=== PATIENT | male | born 1965 | race Two or more races ===

== ENCOUNTER 2018-11-11 09:30 | Emergency (ER) | END 2018-11-11 11:45 | disposition home or self-care (01) ==

== ENCOUNTER 2019-05-27 09:57 | Inpatient (IN) | payer OTHER ==
[~2019-05-27] VITALS: Ht 175.3 cm; Wt 80.0 kg
[~2019-05-27 09:57] MED LIST: DOCU-144 PO; FAMO-96 PO
[2019-05-27] MEDS ORDERED: ONDANSETRON 4 MG INJ IV STA ×2 (10:08→12:16)
[2019-05-27] MEDS ORDERED: SOD CHLORIDE 0.9% 1,000 ML IV STA ×2 (10:08→12:16)
[2019-05-27] MEDS ORDERED: HYDROmorphONE 1 MG/ML SYG IV STA ×2 (10:08→12:16)
--- NOTE | 2019-05-27 11:21 | ERD ---
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 NO HEMATURIA HPI This is a 53-year-old male with no past medical history that presents to the emergency department complaining of a sudden onset of left flank pain that occurred 1 hour prior to arrival. The patient states the pain is 10 out of 10 in intensity. The patient has not experienced any hematuria. The patient has never had any similar pain in the past. He has no past surgical history. He did not take any analgesic medication prior to arrival. The pain began to radiate to the left lower quadrant. There is no alleviating or exacerbating factors. No fevers or shaking or chills. ROS All systems reviewed and are negative except as per history of present illness. Medications Home Meds Discontinued Scripts Famotidine* (Pepcid*) 20 Mg Tablet, 20 MG PO BID for 4 Days, TAB Prov:JOSÉ MIGUEL AU 11/11/18 Docusate Sodium* (Colace*) 100 Mg Capsule, 100 MG PO TID, #30 CAP Prov:ROEJOSÉ MIGUEL 11/11/18 Allergies Allergies: Coded Allergies: No Known Allergy (Verified , 05/27/19) PMhx/Soc History of Surgery: Yes (hernia repair~10 yrs ago) Anesthesia Reaction: No Hx Neurological Disorder: No Hx Respiratory Disorders: No Hx Cardiac Disorders: No Hx Psychiatric Problems: No Hx Miscellaneous Medical Probl: No Hx Alcohol Use: No Hx Substance Use: Yes Hx Tobacco Use: Yes Smoking Status: Never smoker Physical Exam Vitals Vital Signs Date Temp Pulse Resp B/P (MAP) Pulse Ox O2 O2 Flow FiO2 Time Delivery Rate 05/27/19 98.5 79 26 175/89 98 09:59 (117) Physical Exam Constitutional:Well-developed. Well-nourished. Patient tearful and appeared to be in a significant amount discomfort secondary to pain HEENT:Normocephalic. Atraumatic.Pupils were equal round reactive to light. Moist mucous membranes.No tonsillar exudates. Neck: No nuchal rigidity. No lymphadenopathy. No posterior cervical spine tenderness or step-offs. Respiratory: Not using accessory muscles of respiration.Lungs were clear to auscultation bilaterally. No rhonchi. No rales. No wheezing. Cardiovascular: Regular rate regular rhythm.No murmurs. No rubs were appreciated.S1, S2 normal. Distal pulses are palpable 2+ bilaterally. GI: Abdomen was soft. Severe pain in the left lower quadrant. Non Distended. No pulsatile abdominal masses or bruits. No rebound. No guarding. Bowel sounds were present and normal. Muscle skeletal: Full range of motion of both the upper and lower extremities bilaterally.Normal muscle tone.No assymetrical calf tenderness or swelling. Skin: No petechia, no purpura. No lesions on the palms or the soles of the feet. No maculopapular rash. NEURO: Patient was alert, awake, orientated x3.No facial droop. Gait observed and normal with no ataxia.Speech had regular rate and rhythm. No focal neurological deficits. Result Diagram: 05/27/19 1013 05/27/19 1013 Results 24 hrs Laboratory Tests Test 05/27/19 10:13 White Blood Count 4.3 10^3/ul Red Blood Count 4.42 10^6/ul Hemoglobin 15.0 g/dl Hematocrit 42.7 % Mean Corpuscular Volume 96.6 fl Mean Corpuscular Hemoglobin 33.9 pg Mean Corpuscular Hemoglobin Concent 35.1 g/dl Red Cell Distribution Width 13.8 % Platelet Count 139 10^3/UL Mean Platelet Volume 10.3 fl Immature Granulocytes % 0.200 % Neutrophils % 41.8 % Lymphocytes % 42.1 % Monocytes % 12.6 % Eosinophils % 2.8 % Basophils % 0.5 % Nucleated Red Blood Cells % 0.0 /100WBC Immature Granulocytes # 0.010 10^3/ul Neutrophils # 1.8 10^3/ul Lymphocytes # 1.8 10^3/ul Monocytes # 0.5 10^3/ul Eosinophils # 0.1 10^3/ul Basophils # 0.0 10^3/ul Nucleated Red Blood Cells # 0.0 10^3/ul Prothrombin Time 13.4 Sec Prothrombin Time Ratio 1.0 INR International Normalized Ratio 1.01 Activated Partial Thromboplast Time 24.1 Sec Urine Color YELLOW Urine Clarity CLEAR Urine pH 6.0 Urine Specific [place] 1.006 Urine Ketones NEGATIVE mg/dL Urine Nitrite NEGATIVE mg/dL Urine Bilirubin NEGATIVE mg/dL Urine Urobilinogen NEGATIVE mg/dL Urine Leukocyte Esterase NEGATIVE [place]/ul Urine Microscopic RBC > 182 /HPF Urine Microscopic WBC 12 /HPF Urine Bacteria FEW /HPF Urine Mucus FEW /HPF Urine Hemoglobin 3+ mg/dL Urine Glucose NEGATIVE mg/dL Urine Total Protein NEGATIVE mg/dl Sodium Level 143 mmol/L Potassium Level 4.1 mmol/L Chloride Level 109 mmol/L Carbon Dioxide Level 24 mmol/L Anion Gap 10 Blood Urea Nitrogen 6 mg/dl Creatinine 0.87 mg/dl Est Glomerular Filtrat Rate mL/min > 60 mL/min Glucose Level 88 mg/dl Calcium Level 9.2 mg/dl Total Bilirubin 1.6 mg/dl Direct Bilirubin 0.00 mg/dl Indirect Bilirubin 1.6 mg/dl Aspartate Amino Transf (AST/SGOT) 69 IU/L Alanine Aminotransferase (ALT/SGPT) 70 IU/L Alkaline Phosphatase 92 IU/L Troponin I < 0.012 ng/ml Total Protein 8.9 g/dl Albumin 4.4 g/dl Globulin 4.50 g/dl Albumin/Globulin Ratio 0.97 Amylase Level 102 U/L Lipase 140 U/L Current Medications Medications Dose Sig/Rodrigo Start Time Status Last (Trade) Ordered Route PRN Stop Time Admin Dose Reason Admin Sodium 1,000 ml @ Q1H STAT 05/27/19 DC 05/27/19 Chloride 1,000 mls/hr IV 10:08 10:17 05/27/19 11:07 1 mg ONCE STAT 05/27/19 DC 05/27/19 Hydromorphone IV 10:08 10:16 HCl 05/27/19 10:10 (Dilaudid) Ondansetron 4 mg ONCE STAT 05/27/19 DC 05/27/19 HCl (Zofran IV 10:08 10:15 Inj) 05/27/19 10:10 Ketorolac 30 mg ONCE STAT 05/27/19 DC 05/27/19 Tromethamine IV 12:13 12:33 (Toradol) 05/27/19 12:15 Sodium 1,000 ml @ Q1H STAT 05/27/19 DC 05/27/19 Chloride 1,000 mls/hr IV 12:16 12:32 05/27/19 13:15 1 mg ONCE STAT 05/27/19 DC 05/27/19 Hydromorphone IV 12:16 12:33 HCl 05/27/19 12:17 (Dilaudid) Ondansetron 4 mg ONCE STAT 05/27/19 DC HCl (Zofran IV 12:16 Inj) 05/27/19 12:17 Procedures/MDM This is a very pleasant 53-year-old male that presented to the emergency department the sudden onset of severe flank pain. The patient immediately was placed on plugger continuous pulse oximetry and IV access was established by nursing staff. The patient was given intravenous Dilaudid and fluids. A CT scan of the abdomen confirmed that the patient did have the followin. Mild left-sided hydroureteronephrosis with an obstructing proximal left ureteral 6 x 7 mm calculus. 2. Nonobstructing left lower pole renal [place] 3 mm calculus. 3. Colonic diverticulosis. 4. No CT evidence for appendicitis. 5. Status post cholecystectomy. 6. Mildly enlarged prostate. 7. Small right inguinal hernia containing fat. 8. Probable prior left-sided inguinal herniorrhaphy. The patient required multiple doses of analgesic medication which also included Toradol and Flomax. Urine culture was obtained. The patient was given IV ciprofloxacin as he also had pyuria on his urinalysis with hematuria. Patient's pain did not improve as he required multiple doses of analgesic medication and therefore he will be admitted for pain control to the hospitalist Dr. Anders. I did feel the patient was stable to go to the medical surgical floor. I obtained a 12-lead EKG tracing to rule for atypical myocardial fraction. 12 Lead EKG tracing ordered and reviewed by myself showed: Normal sinus rhythm of 67 bpm and no arrhythmia. MA interval normal. QRS duration normal. No ST segment elevation No ST segment depression. No changes consistent with acute ischemia. Departure Diagnosis: Primary Impression: Obstructive uropathy Condition: Serious RAUL TEMPLETON MD May 27, 2019 11:21
[2019-05-27] MEDS ORDERED: KETOROLAC 30 MG INJ IV STA (12:13)
[2019-05-27] MEDS ORDERED: ONDANSETRON 4 MG INJ IV PRN ×2 (12:30→14:30)
[2019-05-27] MEDS ORDERED: TAMSULOSIN (SR) 0.4 MG CAP PO ONE (12:30)
[2019-05-27] MEDS ORDERED: CIPROFLOXACIN 400MG/D5W 200 ML IVPB ONE (12:30)
[2019-05-27] MEDS ORDERED: ACETAMINOPHEN 325 MG TAB PO PRN ×2 (12:30→14:30)
[2019-05-27 13:25] VITALS: BP 121/72; PULSE 61; RESP 18
[2019-05-27 14:15] VITALS: Ht 175.3 cm; Wt 80.0 kg
--- NOTE | 2019-05-27 14:26 | HP ---
Date/Time of Note Date/Time of Note DATE: 05/27/19 TIME: 14:10 Assessment/Plan VTE Prophylaxis SCD applied (from Nsg): Yes Pharmacological prophylaxis: NA/contraindicated Pharm contraindication: low risk/ambulating Lines/Catheters IV Catheter Type (from Nrsg): Saline Lock Assessment/Plan Assessment/Plan 53 yo man presents with acute obstructive nephrolithiasis #L sided obstructive nephrolithiasis - Oral fluids, pain control - Tamsulosin - Consulted Dr. Kelly - Likely discharge in AM. #Tobacco use - Counselled on cessation #Alcohol use - Counselled on national guideline recommended intake. DVT: SCDs GI: None Result Diagram: 05/27/19 1013 05/27/19 1013 HPI/ROS Admit Date/Time Admit Date/Time May 27, 2019 at 12:22 Hx of Present Illness Mr. Walters is a 53 yo man with no major PMH who presents with acute onset L flank pain. Symptoms started this morning around 9 am with stabbing left lower quadrant pain radiating to the L flank. It was waxing and waning in quality. Not associated with dysuria or hematuria. He has never had similar pain before. He came to the emergency room. In the ED he was afebrile, tachypneic to 26, BP 175/89, in very considerable pain. CBC and BMP were unremarkable. CT showed left proximal ureter 6x7mm stone with hydroureteronephrosis. ROS He denies fever, chills, weight loss, anorexia, headache, vision changes, dizziness, sore throat, dysphagia, nausea, vomiting, dyspnea, cough, chest pain/pressure/palpitations, diarrhea, constipation, dysuria. Of note, after getting the CT in the ED the patient had an episode of brown urine then it was clear afterwards. PMH/Family/Social Past Medical History Denies Coded Allergies: No Known Allergy (Verified , 05/27/19) Past Surgical History L inguinal hernia Cholecystectomy Social History Alcohol Use: heavy (drinks 4-5 beers per day) Smoking Status: Current every day smoker (smokes 4-5 cigarettes per day) Drug Use: none Exam/Review of Systems Vital Signs Vitals Vital Signs Date Temp Pulse Resp B/P (MAP) Pulse Ox O2 O2 Flow FiO2 Time Delivery Rate 05/27/19 98.1 61 18 121/72 Room Air 13:25 (88) 05/27/19 98 13:01 Exam Exam Gen: Well appearing man comfortably in bed, no distress Eyes: PERRL, no icterus HEENT: Moist mucous membranes, clear oropharynx Card: Regular rate and rhythm, no murmurs Pulm: Clear to auscultation bilaterally Abd: Epigastric tenderness to deep palpation. Minimal LLQ tenderness. Soft, nondistended. No CVA tenderness bilatreally. Ext: No cyanosis/clubbing. Trace bilateral edema. Skin: warm, dry, well perfused. GRACIA COSTA MD May 27, 2019 14:22
[2019-05-27] MEDS ORDERED: NACL 0.9% 3 ML SYG IV SCH (14:30)
[2019-05-27] MEDS: HYDROCODONE/APAP (5/325) TAB PO PRN (15:56)
--- NOTE | 2019-05-27 16:22 | CONS ---
Assessment/Plan Assessment/Plan Hospital Course (Demo Recall) 53-year-old male came into the emergency room with severe left flank pain. He underwent a CT scan of the abdomen and pelvis and that showed a 6 x 7 mm left upper ureteral stone. Patient was admitted and a urological consultation was requested. Patient states have left flank pain about 3 months earlier and I came in to the emergency room here. At that time the pain was not as bad and he was told he has a urinary tract infection. He denies any prior history of kidney stone. Impression is 6 x 7 mm stone in the left upper ureter. Plan: Pain medications, antibiotic, strain the urine, tamsulosin, KUB today and tomorrow to see if the stone is visible and follow its progression. Consultation Date/Type/Reason Admit Date/Time May 27, 2019 at 12:22 Date of Consultation: May 27, 2019 Type of Consult Urology Reason for Consultation Left upper ureteral stone Requesting Provider: GRACIA COSTA MD Date/Time of Note DATE: 05/27/19 TIME: 16:15 Hx of Present Illness 53-year-old male came into the emergency room with severe left flank pain. He underwent a CT scan of the abdomen and pelvis and that showed a 6 x 7 mm left upper ureteral stone. Patient was admitted and a urological consultation was requested. Patient states have left flank pain about 3 months earlier and I came in to the emergency room here. At that time the pain was not as bad and he was told he has a urinary tract infection. He denies any prior history of kidney stone. Constitutional: no complaints Eyes: no complaints ENT: no complaints Respiratory: no complaints; No wheezing Cardiovascular: no complaints; No chest pain Gastrointestinal: no complaints Genitourinary: flank pain (Left side) Musculoskeletal: no complaints Skin: no complaints Neurologic: no complaints Endocrine: no complaints Psychological: no complaints Immunologic: no complaints Past Medical History Home Meds Discontinued Scripts Famotidine* (Pepcid*) 20 Mg Tablet, 20 MG PO BID for 4 Days, TAB Prov:ROE,JOSÉ MIGUEL 11/11/18 Docusate Sodium* (Colace*) 100 Mg Capsule, 100 MG PO TID, #30 CAP Prov:ROE,JOSÉ MIGUEL 11/11/18 Medications Current Medications IV Flush (NS 3 ml) 3 ml PER PROTOCOL IV ; Start 05/27/19 at 14:30 Ondansetron HCl (Zofran Inj) 4 mg Q6H PRN IV NAUSEA/VOMITING; Start 05/27/19 at 14:30 Acetaminophen (Tylenol Tab) 650 mg Q6H PRN PO .PAIN 1-3 OR TEMP; Start 05/27/19 at 14:30 Acetaminophen/ Hydrocodone Bitart ([place] (5/325)) 1 tab Q6H PRN PO .MOD PAIN 4- 6 Last administered on 05/27/19at 15:56; Admin Dose 1 TAB; Start 05/27/19 at 14:30 Morphine Sulfate (morphine) 2 mg Q4H PRN IV BREAKTHROUGH PAIN; Start 05/27/19 at 14:30 Tamsulosin HCl (Flomax) 0.4 mg HS PO ; Start 05/27/19 at 21:00 Allergies: Coded Allergies: No Known Allergy (Verified , 05/27/19) Past Surgical History Past Surgical Hx: cholecystectomy, other (Left Inguinal hernia repair) Social History Alcohol Use: heavy (drinks 4-5 beers per day) Smoking Status: Current every day smoker (smokes 4-5 cigarettes per day) Drug Use: none Exam/Review of Systems Exam Vitals Vital Signs Date Temp Pulse Resp B/P (MAP) Pulse Ox O2 O2 Flow FiO2 Time Delivery Rate 05/27/19 98.1 61 18 121/72 Room Air 13:25 (88) 05/27/19 98 13:01 Constitutional: alert, oriented Psych: no complaints Head: normocephalic Eyes: nl conjunctiva ENMT: nl external ears & nose Neck: supple Respiratory: normal air movement; No wheezing Cardiovascular: No jugular venous distention (JVD) Gastrointestinal: soft, surgical scars Genitourinary - Male: nl penis, nl scrotum, CVA tenderness (left side), other (Recatal exam : soft prostate) Musculoskeletal: nl extremities to inspection Extremities: No calf tenderness Neurological: nl mental status Skin: nl turgor Results Result Diagram: 05/27/19 1013 05/27/19 1013 Results 24hrs Laboratory Tests Test 05/27/19 10:13 White Blood Count 4.3 #L Red Blood Count 4.42 L Hemoglobin 15.0 Hematocrit 42.7 Mean Corpuscular Volume 96.6 Mean Corpuscular Hemoglobin 33.9 H Mean Corpuscular Hemoglobin Concent 35.1 Red Cell Distribution Width 13.8 Platelet Count 139 L Mean Platelet Volume 10.3 Immature Granulocytes % 0.200 Neutrophils % 41.8 Lymphocytes % 42.1 Monocytes % 12.6 H Eosinophils % 2.8 Basophils % 0.5 Nucleated Red Blood Cells % 0.0 Immature Granulocytes # 0.010 Neutrophils # 1.8 Lymphocytes # 1.8 Monocytes # 0.5 Eosinophils # 0.1 Basophils # 0.0 Nucleated Red Blood Cells # 0.0 Prothrombin Time 13.4 Prothrombin Time Ratio 1.0 INR International Normalized Ratio 1.01 Activated Partial Thromboplast Time 24.1 Urine Color YELLOW Urine Clarity CLEAR Urine pH 6.0 Urine Specific [place] 1.006 Urine Ketones NEGATIVE Urine Nitrite NEGATIVE Urine Bilirubin NEGATIVE Urine Urobilinogen NEGATIVE Urine Leukocyte Esterase NEGATIVE Urine Microscopic RBC > 182 H Urine Microscopic WBC 12 H Urine Bacteria FEW A Urine Mucus FEW A Urine Hemoglobin 3+ H Urine Glucose NEGATIVE Urine Total Protein NEGATIVE Sodium Level 143 Potassium Level 4.1 Chloride Level 109 Carbon Dioxide Level 24 Anion Gap 10 Blood Urea Nitrogen 6 L Creatinine 0.87 Est Glomerular Filtrat Rate mL/min > 60 Glucose Level 88 Calcium Level 9.2 Total Bilirubin 1.6 H Direct Bilirubin 0.00 Indirect Bilirubin 1.6 H Aspartate Amino Transf (AST/SGOT) 69 H Alanine Aminotransferase (ALT/SGPT) 70 H Alkaline Phosphatase 92 Troponin I < 0.012 Total Protein 8.9 H Albumin 4.4 Globulin 4.50 H Albumin/Globulin Ratio 0.97 Amylase Level [address] scan of the abdomen and pelvis: 1. Mild left-sided hydroureteronephrosis with an obstructing proximal left ureteral 6 x 7 mm calculus. 2. Nonobstructing left lower pole renal [place] 3 mm calculus. 3. Colonic diverticulosis. 4. No CT evidence for appendicitis. 5. Status post cholecystectomy. 6. Mildly enlarged prostate. 7. Small right inguinal hernia containing fat. 8. Probable prior left-sided inguinal herniorrhaphy. Medications Medication Current Medications IV Flush (NS 3 ml) 3 ml PER PROTOCOL IV ; Start 05/27/19 at 14:30 Ondansetron HCl (Zofran Inj) 4 mg Q6H PRN IV NAUSEA/VOMITING; Start 05/27/19 at 14:30 Acetaminophen (Tylenol Tab) 650 mg Q6H PRN PO .PAIN 1-3 OR TEMP; Start 05/27/19 at 14:30 Acetaminophen/ Hydrocodone Bitart ([place] (5/325)) 1 tab Q6H PRN PO .MOD PAIN 4- 6 Last administered on 05/27/19at 15:56; Admin Dose 1 TAB; Start 05/27/19 at 14:30 Morphine Sulfate (morphine) 2 mg Q4H PRN IV BREAKTHROUGH PAIN; Start 05/27/19 at 14:30 Tamsulosin HCl (Flomax) 0.4 mg HS PO ; Start 05/27/19 at 21:00 ROSA BEARD MD May 27, 2019 16:22
[2019-05-27] MEDS: morphine 2 MG INJ IV PRN ×2 (19:14→23:40)
[2019-05-27 19:15] VITALS: BP 126/62; PULSE 60; RESP 16
[2019-05-27] MEDS: TAMSULOSIN (SR) 0.4 MG CAP PO SCH (20:54)
[2019-05-28 02:07] VITALS: BP 100/55; PULSE 51; RESP 17
[2019-05-28] MEDS: morphine 2 MG INJ IV PRN ×2 (06:08→15:07)
[2019-05-28 07:46] VITALS: BP 98/55; PULSE 51; RESP 18
--- NOTE | 2019-05-28 09:59 | PN ---
Date/Time of Note Date/Time of Note DATE: 05/28/19 TIME: 09:56 Assessment/Plan VTE Prophylaxis Risk score (from Nsg)>0 risk: 2 SCD applied (from Nsg): Yes Pharmacological prophylaxis: NA/contraindicated Pharm contraindication: low risk/ambulating Lines/Catheters IV Catheter Type (from Nrsg): Saline Lock Urinary Cath still in place: No Assessment/Plan Assessment/Plan 53 yo man presents with acute obstructive nephrolithiasis #L sided obstructive nephrolithiasis - Oral fluids, pain control - Tamsulosin - Continue straining urine. - Consulted Dr. Kelly - I believe the current plan is for ureteral stent on Wednesday with outpatient followup at [facility]. #Tobacco use - Counselled on cessation #Alcohol use - Counselled on national guideline recommended intake. DVT: SCDs GI: None Result Diagram: 05/28/194 05/28/19432 Subjective 24 Hr Interval Summary Free Text/Dictation Today the patient is gesturing to his right abdomen and reporting more pain on that side. Still requiring norco and morphine. Exam/Review of Systems Exam Vitals Vital Signs Date Temp Pulse Resp B/P (MAP) Pulse Ox O2 O2 Flow FiO2 Time Delivery Rate 05/28/19 98.4 51 18 98/55 (69) 96 07:46 05/27/19 Room Air 13:25 Intake and Output 05/27/19 05/27/19 05/28/19 1515:00 23:00 07:00 IntakeIntake Total 1400 ml 240 ml BalanceBalance 1400 ml 240 ml Exam Gen: Well appearing man comfortably in bed, no distress Eyes: PERRL, no icterus HEENT: Moist mucous membranes, clear oropharynx Card: Regular rate and rhythm, no murmurs Pulm: Clear to auscultation bilaterally Abd: Epigastric tenderness to deep palpation. Soft, nondistended. No CVA tenderness bilaterally. Ext: No cyanosis/clubbing. Trace bilateral edema. Skin: warm, dry, well perfused. Results Results 24hrs Laboratory Tests Test 05/27/19 10:13 05/28/19 04:33 05/28/19 04:34 White Blood Count 4.3 #L 5.1 Red Blood Count 4.42 L 3.92 L Hemoglobin 15.0 13.2 L Hematocrit 42.7 38.7 L Mean Corpuscular Volume 96.6 98.7 Mean Corpuscular Hemoglobin 33.9 H 33.7 H Mean Corpuscular Hemoglobin Concent 35.1 34.1 Red Cell Distribution Width 13.8 13.9 Platelet Count 139 L 112 L Mean Platelet Volume 10.3 10.8 H Immature Granulocytes % 0.200 0.400 Neutrophils % 41.8 53.0 Lymphocytes % 42.1 30.2 Monocytes % 12.6 H 12.8 H Eosinophils % 2.8 3.0 Basophils % 0.5 0.6 Nucleated Red Blood Cells % 0.0 0.0 Immature Granulocytes # 0.010 0.020 Neutrophils # 1.8 2.7 Lymphocytes # 1.8 1.5 Monocytes # 0.5 0.7 Eosinophils # 0.1 0.2 Basophils # 0.0 0.0 Nucleated Red Blood Cells # 0.0 0.0 Prothrombin Time 13.4 Prothrombin Time Ratio 1.0 INR International Normalized Ratio 1.01 Activated Partial Thromboplast Time 24.1 Urine Color YELLOW Urine Clarity CLEAR Urine pH 6.0 Urine Specific [place] 1.006 Urine Ketones NEGATIVE Urine Nitrite NEGATIVE Urine Bilirubin NEGATIVE Urine Urobilinogen NEGATIVE Urine Leukocyte Esterase NEGATIVE Urine Microscopic RBC > 182 H Urine Microscopic WBC 12 H Urine Bacteria FEW A Urine Mucus FEW A Urine Hemoglobin 3+ H Urine Glucose NEGATIVE Urine Total Protein NEGATIVE Sodium Level 143 139 Potassium Level 4.1 3.6 Chloride Level 109 108 Carbon Dioxide Level 24 27 Anion Gap 10 4 L Blood Urea Nitrogen 6 L 9 Creatinine 0.87 0.74 Est Glomerular Filtrat Rate mL/min > 60 > 60 Glucose Level 88 86 Calcium Level 9.2 8.4 Total Bilirubin 1.6 H 1.3 Direct Bilirubin 0.00 0.00 Indirect Bilirubin 1.6 H 1.3 H Aspartate Amino Transf (AST/SGOT) 69 H 43 Alanine Aminotransferase (ALT/SGPT) 70 H 53 Alkaline Phosphatase 92 75 Troponin I < 0.012 Total Protein 8.9 H 6.6 # Albumin 4.4 3.1 #L Globulin 4.50 H 3.50 H Albumin/Globulin Ratio 0.97 0.88 Amylase Level 102 Lipase 140 Hemoglobin A1c 4.8 Phosphorus Level 4.0 Magnesium Level 1.9 Medications Medication Current Medications IV Flush (NS 3 ml) 3 ml PER PROTOCOL IV ; Start 05/27/19 at 14:30 Ondansetron HCl (Zofran Inj) 4 mg Q6H PRN IV NAUSEA/VOMITING; Start 05/27/19 at 14:30 Acetaminophen (Tylenol Tab) 650 mg Q6H PRN PO .PAIN 1-3 OR TEMP; Start 05/27/19 at 14:30 Acetaminophen/ Hydrocodone Bitart ([place] (5/325)) 1 tab Q6H PRN PO .MOD PAIN 4- 6 Last administered on 05/27/19at 15:56; Admin Dose 1 TAB; Start 05/27/19 at 14:30 Morphine Sulfate (morphine) 2 mg Q4H PRN IV BREAKTHROUGH PAIN Last administered on 05/28/19at 06:08; Admin Dose 2 MG; Start 05/27/19 at 14:30 Tamsulosin HCl (Flomax) 0.4 mg HS PO Last administered on 05/27/19at 20:54; Admin Dose 0.4 MG; Start 05/27/19 at 21:00 Ciprofloxacin (Cipro) 500 mg DAILY PO ; Start 05/28/19 at 10:00 GRACIA COSTA MD May 28, 2019 09:59
[2019-05-28] MEDS: CIPROFLOXACIN 500 MG TAB PO SCH (11:02)
[2019-05-28 13:59] VITALS: BP 113/73; PULSE 55; RESP 18
[2019-05-28] MEDS: POLYETHYLENE GLYCOL 17 GM PACKET PO PRN (18:50)
[2019-05-28 19:20] VITALS: BP 114/74; PULSE 56; RESP 20
--- NOTE | 2019-05-28 20:45 | CONS ---
Consult Date/Type/Reason Admit Date/Time May 27, 2019 at 12:22 Initial Consult Date 05/27/19 Type of Consultation: Urology Reason for Consultation Left upper ureteral stone Requesting Provider: GRACIA COSTA MD Date/Time of Note DATE: 05/28/19 TIME: 20:42 Subjective Patient has been feeling pain on and off. He is voiding well and the urine is clear Objective Vitals Vital Signs Date Temp Pulse Resp B/P (MAP) Pulse Ox O2 O2 Flow FiO2 Time Delivery Rate 05/28/19 98.1 56 20 114/74 93 Room Air 19:20 (87) Intake and Output 05/27/19 05/27/19 05/28/19 1515:00 23:00 07:00 IntakeIntake Total 1400 ml 240 ml BalanceBalance 1400 ml 240 ml Exam Abdomen is soft, he does have left flank tenderness. KUB did not show any radiopaque stone. The stone is either radiolucent or obscured by the bowel cont ent. Results/Medications Result Diagram: 05/28/19 0434 05/28/19 0433 Results 24 hrs Laboratory Tests Test 05/28/19 04:33 05/28/19 04:34 Sodium Level 139 Potassium Level 3.6 Chloride Level 108 Carbon Dioxide Level 27 Anion Gap 4 L Blood Urea Nitrogen 9 Creatinine 0.74 Est Glomerular Filtrat Rate mL/min > 60 Glucose Level 86 Hemoglobin A1c 4.8 Calcium Level 8.4 Phosphorus Level 4.0 Magnesium Level 1.9 Total Bilirubin 1.3 Direct Bilirubin 0.00 Indirect Bilirubin 1.3 H Aspartate Amino Transf (AST/SGOT) 43 Alanine Aminotransferase (ALT/SGPT) 53 Alkaline Phosphatase 75 Total Protein 6.6 # Albumin 3.1 #L Globulin 3.50 H Albumin/Globulin Ratio 0.88 White Blood Count 5.1 Red Blood Count 3.92 L Hemoglobin 13.2 L Hematocrit 38.7 L Mean Corpuscular Volume 98.7 Mean Corpuscular Hemoglobin 33.7 H Mean Corpuscular Hemoglobin Concent 34.1 Red Cell Distribution Width 13.9 Platelet Count 112 L Mean Platelet Volume 10.8 H Immature Granulocytes % 0.400 Neutrophils % 53.0 Lymphocytes % 30.2 Monocytes % 12.8 H Eosinophils % 3.0 Basophils % 0.6 Nucleated Red Blood Cells % 0.0 Immature Granulocytes # 0.020 Neutrophils # 2.7 Lymphocytes # 1.5 Monocytes # 0.7 Eosinophils # 0.2 Basophils # 0.0 Nucleated Red Blood Cells # 0.0 Home Meds Discontinued Scripts Famotidine* (Pepcid*) 20 Mg Tablet, 20 MG PO BID for 4 Days, TAB Prov:JOSÉ MIGUEL AU 11/11/18 Docusate Sodium* (Colace*) 100 Mg Capsule, 100 MG PO TID, #30 CAP Prov:JOSÉ MIGUEL AU 11/11/18 Medications Current Medications IV Flush (NS 3 ml) 3 ml PER PROTOCOL IV ; Start 05/27/19 at 14:30 Ondansetron HCl (Zofran Inj) 4 mg Q6H PRN IV NAUSEA/VOMITING; Start 05/27/19 at 14:30 Acetaminophen (Tylenol Tab) 650 mg Q6H PRN PO .PAIN 1-3 OR TEMP; Start 05/27/19 at 14:30 Acetaminophen/ Hydrocodone Bitart ([place] (5/325)) 1 tab Q6H PRN PO .MOD PAIN 4- 6 Last administered on 05/27/19at 15:56; Admin Dose 1 TAB; Start 05/27/19 at 14:30 Morphine Sulfate (morphine) 2 mg Q4H PRN IV BREAKTHROUGH PAIN Last administered on 05/28/19at 15:07; Admin Dose 2 MG; Start 05/27/19 at 14:30 Tamsulosin HCl (Flomax) 0.4 mg HS PO Last administered on 05/27/19at 20:54; Admin Dose 0.4 MG; Start 05/27/19 at 21:00 Ciprofloxacin (Cipro) 500 mg DAILY PO Last administered on 05/28/19at 11:02; Admin Dose 500 MG; Start 05/28/19 at 10:00 Polyethylene Glycol (Miralax) 17 gm DAILY PRN PO CONSTIPATION Last administered on 05/28/19 18:50; Admin Dose 17 GM; Start 05/28/19 at 11:30 Assessment/Plan Hospital Course (Demo Recall) 53-year-old male came into the emergency room with severe left flank pain. He underwent a CT scan of the abdomen and pelvis and that showed a 6 x 7 mm left upper ureteral stone. Patient was admitted and a urological consultation was requested. Patient states have left flank pain about 3 months earlier and I came in to the emergency room here. At that time the pain was not as bad and he was told he has a urinary tract infection. He denies any prior history of kidney stone. Patient less severe pain today but he continues to have pain on and off. KUB done today did not show the stone and that may be because the stone is radiolucent or obscured by the bowel content. His CBC shows a normal white count and straining of his urine did not yield any stone yet. We will continue to strain his urine and continue the tamsulosin and repeat the KUB in a.m. ROSA BEARD MD May 28, 2019 20:45
[2019-05-28] MEDS: TAMSULOSIN (SR) 0.4 MG CAP PO SCH (22:24)
[2019-05-29 01:35] VITALS: BP 110/61; PULSE 51; RESP 18
[2019-05-29 08:03] VITALS: BP 111/64; PULSE 68; RESP 19
[2019-05-29] MEDS: HYDROCODONE/APAP (5/325) TAB PO PRN (08:03)
[2019-05-29] MEDS: CIPROFLOXACIN 500 MG TAB PO SCH (08:03)
[2019-05-29] MEDS: morphine 2 MG INJ IV PRN (08:07)
--- NOTE | 2019-05-29 11:38 | PN ---
Date/Time of Note Date/Time of Note DATE: 05/29/19 TIME: 11:36 Assessment/Plan VTE Prophylaxis Risk score (from Nsg)>0 risk: 2 SCD applied (from Nsg): Yes Pharmacological prophylaxis: other Lines/Catheters IV Catheter Type (from Nrsg): Sal[place] Lock Urinary Cath still in place: No Assessment/Plan Hospital Course S: Patient not scheduled for surgery today. Still complaining of occasional flank pain. O: VS - see below PE: Gen: Ambulating in room, no acute distress Eyes: PERRL, no icterus HEENT: Moist mucous membranes, clear oropharynx Card: Regular rate and rhythm, no murmurs Pulm: Clear to auscultation bilaterally Abd: Epigastric tenderness to deep palpation. Soft, nondistended. No CVA tenderness bilaterally. Ext: No cyanosis/clubbing. Trace bilateral edema. Assessment/Plan: 53 yo man presents with acute obstructive nephrolithiasis #L sided obstructive nephrolithiasis: Repeat KUB this morning still shows presence of 6 mm stone at T3 level -For now continue oral fluids, pain control - Tamsulosin - Continue straining urine. -Follow-up further recommendations from urology Dr. Kelly-given latest KUB findings patient may benefit from ureteral stent placement, with outpatient [facility] at [facility]. #Tobacco use - Counselled on cessation, consider starting nicotine patch #Alcohol use - Counselled on national guideline recommended intake. DVT: SCDs GI: None Result Diagram: 05/28/19 0434 05/28/19432 Exam/Review of Systems Exam Vitals Vital Signs Date Temp Pulse Resp B/P (MAP) Pulse Ox O2 O2 Flow FiO2 Time Delivery Rate 05/29/19 98.1 68 19 111/64 98 Room Air 08:03 (80) Intake and Output 05/28/19 05/28/19 05/29/19 1515:00 23:00 07:00 IntakeIntake Total 300 ml 100 ml 600 ml OutputOutput Total 850 ml 900 ml BalanceBalance 300 ml -750 ml -300 ml Medications Medication Current Medications IV Flush (NS 3 ml) 3 ml PER PROTOCOL IV ; Start 05/27/19 at 14:30 Ondansetron HCl (Zofran Inj) 4 mg Q6H PRN IV NAUSEA/VOMITING; Start 05/27/19 at 14:30 Acetaminophen (Tylenol Tab) 650 mg Q6H PRN PO .PAIN 1-3 OR TEMP; Start 05/27/19 at 14:30 Acetaminophen/ Hydrocodone Bitart ([place] (5/325)) 1 tab Q6H PRN PO .MOD PAIN 4- 6 Last administered on 05/29/19 08:03; Admin Dose 1 TAB; Start 05/27/19 at 14:30 Morphine Sulfate (morphine) 2 mg Q4H PRN IV BREAKTHROUGH PAIN Last administered on 05/29/19 08:07; Admin Dose 2 MG; Start 05/27/19 at 14:30 Tamsulosin HCl (Flomax) 0.4 mg HS PO Last administered on 05/28/19 22:24; Admin Dose 0.4 MG; Start 05/27/19 at 21:00 Ciprofloxacin (Cipro) 500 mg DAILY PO Last administered on 05/29/19 08:03; Admin Dose 500 MG; Start 05/28/19 at 10:00 Polyethylene Glycol (Miralax) 17 gm DAILY PRN PO CONSTIPATION Last administered on 05/28/19 18:50; Admin Dose 17 GM; Start 05/28/19 at 11:30 Docusate Sodium (Colace) 100 mg BID PO ; Start 05/29/19 at 12:00 SANDRA GREEN May 29, 2019 11:38
[2019-05-29] MEDS: POLYETHYLENE GLYCOL 17 GM PACKET PO PRN (11:43)
[2019-05-29] MEDS: DOCUSATE SODIUM 100 MG CAP PO SCH ×2 (11:43→20:32)
[2019-05-29 15:28] VITALS: BP 118/70; PULSE 66; RESP 17
[2019-05-29] MEDS: SENNA TAB PO SCH ×2 (17:34→20:32)
--- NOTE | 2019-05-29 18:44 | CONS ---
Consult Date/Type/Reason Admit Date/Time May 27, 2019 at 12:22 Initial Consult Date 05/27/19 Type of Consultation: Urology Reason for Consultation Left upper ureteral stone Requesting Provider: GRACIA COSTA MD Date/Time of Note DATE: 05/29/19 TIME: 18:41 Subjective Patient has been having pain on and off. Objective Vitals Vital Signs Date Temp Pulse Resp B/P (MAP) Pulse Ox O2 O2 Flow FiO2 Time Delivery Rate 05/29/19 98.0 66 17 118/70 99 15:28 (86) 05/29/19 Room Air 08:03 Intake and Output 05/28/19 05/28/19 05/29/19 1515:00 23:00 07:00 IntakeIntake Total 300 ml 100 ml 600 ml OutputOutput Total 850 ml 900 ml BalanceBalance 300 ml -750 ml -300 ml Exam Left flank tenderness. Results/Medications Result Diagram: 05/28/19 0434 05/28/19 0433 Home Meds Discontinued Scripts Famotidine* (Pepcid*) 20 Mg Tablet, 20 MG PO BID for 4 Days, TAB Prov:JOSÉ MIGUEL AU 11/11/18 Docusate Sodium* (Colace*) 100 Mg Capsule, 100 MG PO TID, #30 CAP Prov:JOSÉ MIGUEL AU 11/11/18 Medications Current Medications IV Flush (NS 3 ml) 3 ml PER PROTOCOL IV ; Start 05/27/19 at 14:30 Ondansetron HCl (Zofran Inj) 4 mg Q6H PRN IV NAUSEA/VOMITING; Start 05/27/19 at 14:30 Acetaminophen (Tylenol Tab) 650 mg Q6H PRN PO .PAIN 1-3 OR TEMP; Start 05/27/19 at 14:30 Acetaminophen/ Hydrocodone Bitart ([place] (5/325)) 1 tab Q6H PRN PO .MOD PAIN 4- 6 Last administered on 05/29/19at 08:03; Admin Dose 1 TAB; Start 05/27/19 at 14:30 Morphine Sulfate (morphine) 2 mg Q4H PRN IV BREAKTHROUGH PAIN Last administered on 05/29/19at 08:07; Admin Dose 2 MG; Start 05/27/19 at 14:30 Tamsulosin HCl (Flomax) 0.4 mg HS PO Last administered on 05/28/19 22:24; Admin Dose 0.4 MG; Start 05/27/19 at 21:00 Ciprofloxacin (Cipro) 500 mg DAILY PO Last administered on 05/29/19 08:03; Admin Dose 500 MG; Start 05/28/19 at 10:00 Polyethylene Glycol (Miralax) 17 gm DAILY PRN PO CONSTIPATION Last administered on 05/29/19 11:43; Admin Dose 17 GM; Start 05/28/19 at 11:30 Docusate Sodium (Colace) 100 mg BID PO Last administered on 05/29/19 11:43; Admin Dose 100 MG; Start 05/29/19 at 12:00 Senna (Senokot) 1 tab BID PO Last administered on 05/29/19 17:34; Admin Dose 1 TAB; Start 05/29/19 at 17:00 Assessment/Plan Hospital Course (Demo Recall) 53-year-old male came into the emergency room with severe left flank pain. He underwent a CT scan of the abdomen and pelvis and that showed a 6 x 7 mm left upper ureteral stone. Patient was admitted and a urological consultation was requested. Patient states have left flank pain about 3 months earlier and I came in to the emergency room here. At that time the pain was not as bad and he was told he has a urinary tract infection. He denies any prior history of kidney stone. Patient less severe pain today but he continues to have pain on and off. KUB done today did not show the stone and that may be because the stone is radiolucent or obscured by the bowel content. His CBC shows a normal white count and straining of his urine did not yield any stone yet. Since the patient continues to have pain I will do a cystoscopy and insert a left ureteral JJ stent. This is scheduled for May 30, 2019 at 18 o'clock. I have explained to the patient the procedure and the need for follow-up with his IPA which is [facility]. He did understand. He wants to proceed with a JJ stent insertion and he will go after his discharge to his primary care physician and the urologist contracted with his insurance. ROSA BEARD MD May 29, 2019 18:44
[2019-05-29 20:30] VITALS: BP 136/78; PULSE 63; RESP 18
[2019-05-29] MEDS: TAMSULOSIN (SR) 0.4 MG CAP PO SCH (20:32)
[2019-05-30] VITALS (23 sets, daily range): BP systolic 99–138; BP diastolic 58–90; PULSE 48–68; RESP 14–26
[2019-05-30] MEDS: DEXTROSE 5%-0.45% NACL 1,000 ML IV SCH ×3 (02:07→21:32)
[2019-05-30] MEDS: SENNA TAB PO SCH ×2 (09:00→21:29)
[2019-05-30] MEDS: CIPROFLOXACIN 500 MG TAB PO SCH (09:00)
[2019-05-30] MEDS: DOCUSATE SODIUM 100 MG CAP PO SCH ×2 (09:00→21:30)
--- NOTE | 2019-05-30 12:29 | PN ---
Date/Time of Note Date/Time of Note DATE: 05/30/19 TIME: 12:28 Assessment/Plan VTE Prophylaxis Risk score (from Nsg)>0 risk: 1 SCD applied (from Nsg): Yes Pharmacological prophylaxis: other Lines/Catheters IV Catheter Type (from Nrsg): Peripheral IV Urinary Cath still in place: No Assessment/Plan Hospital Course S: Patient had no acute events overnight. Awaiting surgical procedure for later today by urology team given the kidney stone. O: VS - see below PE: Gen: Ambulating in room, no acute distress Eyes: PERRL, no icterus HEENT: Moist mucous membranes, clear oropharynx Card: Regular rate and rhythm, no murmurs Pulm: Clear to auscultation bilaterally Abd: Epigastric tenderness to deep palpation. Soft, nondistended. No CVA tenderness bilaterally. Ext: No cyanosis/clubbing. Trace bilateral edema. Assessment/Plan: 53 yo man presents with acute obstructive nephrolithiasis #L sided obstructive nephrolithiasis: Repeat KUB t yesterday still showed pres ence of 6 mm stone at T3 level -For now continue oral fluids, pain control - Tamsulosin - Continue straining urine. -Again plan for later this evening is surgical ureteral stent placement by urology team, follow-up post procedure recommendations. With outpatient followup at [facility]. #Tobacco use - Counselled on cessation, consider starting nicotine patch #Alcohol use - Counselled on national guideline recommended intake. DVT: SCDs GI: None Result Diagram: 05/28/19 0434 05/28/19 0433 Exam/Review of Systems Exam Vitals Vital Signs Date Temp Pulse Resp B/P (MAP) Pulse Ox O2 O2 Flow FiO2 Time Delivery Rate 05/30/19 98.2 65 18 99/60 (73) 97 Room Air 07:56 Intake and Output 05/29/19 05/29/19 05/30/19 1414:59 22:59 06:59 IntakeIntake Total 120 ml 300 ml OutputOutput Total 300 ml BalanceBalance -300 ml 120 ml 300 ml Medications Medication Current Medications IV Flush (NS 3 ml) 3 ml PER PROTOCOL IV ; Start 05/27/19 at 14:30 Ondansetron HCl (Zofran Inj) 4 mg Q6H PRN IV NAUSEA/VOMITING; Start 05/27/19 at 14:30 Acetaminophen (Tylenol Tab) 650 mg Q6H PRN PO .PAIN 1-3 OR TEMP; Start 05/27/19 at 14:30 Acetaminophen/ Hydrocodone Bitart ([place] (5/325)) 1 tab Q6H PRN PO .MOD PAIN 4- 6 Last administered on 05/29/19 08:03; Admin Dose 1 TAB; Start 05/27/19 at 14:30 Morphine Sulfate (morphine) 2 mg Q4H PRN IV BREAKTHROUGH PAIN Last administered on 05/29/19 08:07; Admin Dose 2 MG; Start 05/27/19 at 14:30 Tamsulosin HCl (Flomax) 0.4 mg HS PO Last administered on 05/29/19 20:32; Admin Dose 0.4 MG; Start 05/27/19 at 21:00 Ciprofloxacin (Cipro) 500 mg DAILY PO Last administered on 05/29/19 08:03; Admin Dose 500 MG; Start 05/28/19 at 10:00 Polyethylene Glycol (Miralax) 17 gm DAILY PRN PO CONSTIPATION Last administered on 05/29/19 11:43; Admin Dose 17 GM; Start 05/28/19 at 11:30 Docusate Sodium (Colace) 100 mg BID PO Last administered on 05/29/19 20:32; Admin Dose 100 MG; Start 05/29/19 at 12:00 Senna (Senokot) 1 tab BID PO Last administered on 05/29/19 20:32; Admin Dose 1 TAB; Start 05/29/19 at 17:00 Dextrose/Sodium Chloride 1,000 ml @ 100 mls/hr Q10H IV Last administered on 05/30/19 02:07; Admin Dose 100 MLS/HR; Start 05/30/19 at 02:00 SANDRA GREEN May 30, 2019 12:29
--- NOTE | 2019-05-30 17:12 | PREAC ---
Date/Time of Note Date/Time of Note DATE: 05/30/19 TIME: 17:11 Anesthesia Eval and Record Evaluation Time Pre-Procedure Interview DATE: 05/30/19 TIME: 17:11 Age 53 Sex male NPO: 8 hrs Preoperative diagnosis Left ureteral stone with obstructive uropathy Planned procedure cystoscopy, left retrograde pyelogram, insertion of left ureteral JJ stent Past Medical History Past Medical History: None Surgery & Anesthesia Issues No known issue Meds Anticoagulation: No Beta Ary within 24 hr: No Reason Beta Ary not given: Pt. not on B-Ary Discontinued Scripts Famotidine* (Pepcid*) 20 Mg Tablet, 20 MG PO BID for 4 Days, TAB Prov:JOSÉ MIGUEL AU 11/11/18 Docusate Sodium* (Colace*) 100 Mg Capsule, 100 MG PO TID, #30 CAP Prov:JOSÉ MIGUEL AU 11/11/18 Current Medications IV Flush (NS 3 ml) 3 ml PER PROTOCOL IV ; Start 05/27/19 at 14:30 Ondansetron HCl (Zofran Inj) 4 mg Q6H PRN IV NAUSEA/VOMITING; Start 05/27/19 at 14:30 Acetaminophen (Tylenol Tab) 650 mg Q6H PRN PO .PAIN 1-3 OR TEMP; Start 05/27/19 at 14:30 Acetaminophen/ Hydrocodone Bitart ([place] (5/325)) 1 tab Q6H PRN PO .MOD PAIN 4- 6 Last administered on 05/29/19 08:03; Admin Dose 1 TAB; Start 05/27/19 at 14:30 Morphine Sulfate (morphine) 2 mg Q4H PRN IV BREAKTHROUGH PAIN Last administered on 05/29/19 08:07; Admin Dose 2 MG; Start 05/27/19 at 14:30 Tamsulosin HCl (Flomax) 0.4 mg HS PO Last administered on 05/29/19 20:32; Admin Dose 0.4 MG; Start 05/27/19 at 21:00 Ciprofloxacin (Cipro) 500 mg DAILY PO Last administered on 05/29/19 08:03; Admin Dose 500 MG; Start 05/28/19 at 10:00 Polyethylene Glycol (Miralax) 17 gm DAILY PRN PO CONSTIPATION Last administered on 05/29/19at 11:43; Admin Dose 17 GM; Start 05/28/19 at 11:30 Docusate Sodium (Colace) 100 mg BID PO Last administered on 05/29/19at 20:32; Admin Dose 100 MG; Start 05/29/19 at 12:00 Senna (Senokot) 1 tab BID PO Last administered on 05/29/19at 20:32; Admin Dose 1 TAB; Start 05/29/19 at 17:00 Dextrose/Sodium Chloride 1,000 ml @ 100 mls/hr Q10H IV Last administered on 05/30/19at 14:47; Admin Dose 100 MLS/HR; Start 05/30/19 at 02:00 Meds reviewed: Yes Allergies Coded Allergies: No Known Allergy (Verified , 05/27/19) Allergies Reviewed: Yes Labs/Studies Labs Reviewed: Reviewed by anesthesiologist Result Diagram: 05/28/19 0434 05/28/19 0433 test: N/A Pre-procedure Exam Last vitals Vital Signs Date Temp Pulse Resp B/P (MAP) Pulse Ox O2 O2 Flow FiO2 Time Delivery Rate 05/30/19 98.2 65 18 99/60 (73) 97 Room Air 07:56 Airway: Adequate mouth opening Mallampati: Mallampati I Teeth: Normal Lung: Normal Heart: Normal ASA Physical Status ASA physical status: 1 Emergency: None Planned Anesthetic General/MAC: ETT, LMA Planned Pain Management Parenteral pain med Pre-operative Attestations Prior to commencing anesthesia and surgery, the patient was re-evaluated, there was verification of: *The patient's identity *The results of appropriate recent lab work and preoperative vital signs *The above evaluation not changing prior to induction *Anesthetic plan, risk benefits, alternative and complications discussed with patient/family; questions answered; patient/family understands, accepts and wishes to proceed. RUDY NUNEZ MD May 30, 2019 17:12
[2019-05-30] MEDS ORDERED: IOHEXOL 300MG/ML 30 ML BTL ONE (18:03)
--- NOTE | 2019-05-30 18:03 | HPN ---
Date/Time of Note Date/Time of Note DATE: 05/30/19 TIME: 18:02 Interval H&P Admission Note Pt. seen H&P reviewed: No system changes The procedure has been explained to the patient. I informed him that we will put the JJ stent to relieve his pain and then after his discharge he will need to go to [facility] to have the stone at the stent removed. He did understand that and he will do that. He is aware that we cannot leave the stent too long otherwise the stent become calcified and cause problems too. ROSA BEARD MD May 30, 2019 18:03
[2019-05-30] MEDS ORDERED: SEVOFLURANE 15 MIN ONE (18:10)
[2019-05-30] MEDS ORDERED: LIDOCAINE 2% (SDV) 5 ML INJ ONE (18:11)
[2019-05-30] MEDS ORDERED: PROPOFOL 20 ML ONE (18:11)
[2019-05-30] MEDS ORDERED: CEFAZOLIN 1 GM INJ ONE (18:40)
[2019-05-30] MEDS ORDERED: ATROPINE 1 MG/10 ML SYRINGE ONE (18:46)
--- NOTE | 2019-05-30 19:05 | OPR ---
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 He was positioned in the lithotomy position. He was given 2 g of Ancef IV at the start of the procedure. Timeout was done and the patient was identified by his name, birthdate, the procedure on the side of the procedure. The genital area was then prepped and draped in the usual sterile manner. #22 Czech cystoscope sheath was introduced under direct vision through the penile urethra. Patient was found to have urethral stricture but I was able to pass the scope through it and therefore dilated with the scope. Fluoroscopy was done and the stone was seen next to the transverse process of L3 on the left side. The left ureteral orifice was then cannulated with a 5 Czech open ended and a 0.035 zip wire was passed through it and under fluoroscopy advanced all the way up to the kidney. The open ended was then advanced on it to the level of the kidney once it reache d the stone level it met some resistance but it did go in. Then the open-ended was removed and the zip wire was left in place and on the zip wire I advanced the 6 Czech by 24 cm long JJ stent. I had its proximal end curled into the kidney and the distal end curled into the bladder. The bladder was then emptied and the patient was transferred to recovery room in a stable and satisfactory condition. ROSA BEARD MD May 30, 2019 19:05
[2019-05-30] MEDS ORDERED: HYDROmorphONE 1 MG/5 ML IV SYRINGE IV ONE (19:18)
[2019-05-30] MEDS ORDERED: FENTAnyl 50 MCG/ML VIAL IV PRN ×3 (19:30)
[2019-05-30] MEDS ORDERED: ONDANSETRON 4 MG INJ IV PRN (19:30)
[2019-05-30] MEDS ORDERED: MEPERIDINE 25 MG INJ IV PRN (19:30)
[2019-05-30] MEDS ORDERED: EPHEDrine 25 MG/5 ML SYG IV PRN (19:30)
[2019-05-30] MEDS ORDERED: HYDROmorphONE 1 MG/5 ML IV SYRINGE IV PRN ×3 (19:30)
[2019-05-30] MEDS ORDERED: MIDAZOLAM 1 MG/ML 2 ML INJ IV PRN (19:30)
[2019-05-30] MEDS ORDERED: LABETALOL HCL 20MG INJ IV PRN (19:30)
[2019-05-30] MEDS ORDERED: DIPHENHYDRAMINE 50 MG INJ IV PRN (19:30)
[2019-05-30] MEDS ORDERED: hydrALAzine 20 MG INJ IV PRN (19:30)
[2019-05-30] MEDS ORDERED: METOCLOPRAMIDE 10 MG INJ IV PRN (19:30)
[2019-05-30] MEDS: TAMSULOSIN (SR) 0.4 MG CAP PO SCH (21:29)
[2019-05-31 00:30] VITALS: BP 101/63; PULSE 45; RESP 17
[2019-05-31] MEDS: DEXTROSE 5%-0.45% NACL 1,000 ML IV SCH (07:10)
[2019-05-31 07:39] VITALS: BP 101/74; PULSE 58; RESP 16
[2019-05-31] MEDS: DOCUSATE SODIUM 100 MG CAP PO SCH (08:06)
[2019-05-31] MEDS: SENNA TAB PO SCH (08:06)
[2019-05-31] MEDS: CIPROFLOXACIN 500 MG TAB PO SCH (08:06)
[2019-05-31] MEDS: HYDROCODONE/APAP (5/325) TAB PO PRN ×2 (08:07→14:09)
--- NOTE | 2019-05-31 08:11 | PAC ---
Date/Time of Note Date/Time of Note DATE: 05/31/19 TIME: 08:11 Post-Anesthesia Notes Post-Anesthesia Note Last documented vital signs Vital Signs Date Temp Pulse Resp B/P (MAP) Pulse Ox O2 O2 Flow FiO2 Time Delivery Rate 05/31/19 98.7 58 16 101/74 98 Room Air 07:39 (83) Activity: WNL Respiratory function: WNL Cardiovascular function: WNL Mental status: Baseline Pain reasonably controlled: Yes Hydration appropriate: Yes Nausea/Vomiting absent: Yes RUDY NUNEZ MD May 31, 2019 08:11
--- NOTE | 2019-05-31 12:08 | PN ---
Date/Time of Note Date/Time of Note DATE: 05/31/19 TIME: 12:06 Assessment/Plan VTE Prophylaxis Risk score (from Nsg)>0 risk: 1 SCD applied (from Nsg): Yes Pharmacological prophylaxis: other Lines/Catheters IV Catheter Type (from Nrsg): Peripheral IV Urinary Cath still in place: No Assessment/Plan Hospital Course S: Patient had the cystoscopy with JJ stent placement for the ureteral stone performed yesterday. Having some tenderness and postop hematuria, no fevers. Tolerating diet. O: VS - see below PE: Gen: Ambulating in room, no acute distress Eyes: PERRL, no icterus HEENT: Moist mucous membranes, clear oropharynx Card: Regular rate and rhythm, no murmurs Pulm: Clear to auscultation bilaterally Abd: Epigastric tenderness to deep palpation. Soft, nondistended. No CVA tender ness bilaterally. Ext: No cyanosis/clubbing. Trace bilateral edema. Date/Time of Note Date/Time of Note DATE: 05/30/19 TIME: 18:59 Operative Report Procedure Date: May 30, 2019 Preoperative Diagnosis Left upper ureteral stone Postoperative Diagnosis Same, urethral stricture Operation/Procedure Performed Cystoscopy and insertion of left ureteral JJ stent 6 [place] by 24 cm long Assessment/Plan: 53 yo man presents with acute obstructive nephrolithiasis. #L sided obstructive nephrolithiasis: Again patient status post cystoscopy and JJ stent insertion for treatment of the urethral stone, postop day #1 -For now continue oral fluids, pain control, p.o. Cipro, Tamsulosin -Follow-up further neurology recognitions, monitor postop hematuria. -Case management consult to help patient assist with setting up outpatient urology appointment in the next few days upon discharge with his contracted urologist. #Tobacco use - Counselled on cessation, consider starting nicotine patch #Alcohol use - Counselled on national guideline recommended intake. DVT: SCDs GI: None Result Diagram: 05/28/19 0434 05/28/19 0433 Exam/Review of Systems Exam Vitals Vital Signs Date Temp Pulse Resp B/P (MAP) Pulse Ox O2 O2 Flow FiO2 Time Delivery Rate 05/31/19 98.7 58 16 101/74 98 Room Air 07:39 (83) Intake and Output 05/30/19 05/30/19 05/31/19 1515:00 23:00 07:00 IntakeIntake Total 700 ml 590 ml 1100 ml OutputOutput Total 550 ml 250 ml BalanceBalance 700 ml 40 ml 850 ml Medications Medication Current Medications IV Flush (NS 3 ml) 3 ml PER PROTOCOL IV ; Start 05/27/19 at 14:30 Ondansetron HCl (Zofran Inj) 4 mg Q6H PRN IV NAUSEA/VOMITING; Start 05/27/19 at 14:30 Acetaminophen (Tylenol Tab) 650 mg Q6H PRN PO .PAIN 1-3 OR TEMP; Start 05/27/19 at 14:30 Acetaminophen/ Hydrocodone Bitart ([place] (5/325)) 1 tab Q6H PRN PO .MOD PAIN 4- 6 Last administered on 05/31/19 08:07; Admin Dose 1 TAB; Start 05/27/19 at 14:30 Morphine Sulfate (morphine) 2 mg Q4H PRN IV BREAKTHROUGH PAIN Last administered on 05/29/19 08:07; Admin Dose 2 MG; Start 05/27/19 at 14:30 Tamsulosin HCl (Flomax) 0.4 mg HS PO Last administered on 05/30/19 21:29; Admin Dose 0.4 MG; Start 05/27/19 at 21:00 Ciprofloxacin (Cipro) 500 mg DAILY PO Last administered on 05/31/19 08:06; Admin Dose 500 MG; Start 05/28/19 at 10:00 Polyethylene Glycol (Miralax) 17 gm DAILY PRN PO CONSTIPATION Last administered on 05/29/19 11:43; Admin Dose 17 GM; Start 05/28/19 at 11:30 Docusate Sodium (Colace) 100 mg BID PO Last administered on 05/31/19 08:06; Admin Dose 100 MG; Start 05/29/19 at 12:00 Senna (Senokot) 1 tab BID PO Last administered on 05/31/19 08:06; Admin Dose 1 TAB; Start 05/29/19 at 17:00 Dextrose/Sodium Chloride 1,000 ml @ 100 mls/hr Q10H IV Last administered on 05/31/19 07:10; Admin Dose 100 MLS/HR; Start 05/30/19 at 02:00 SANDRA GREEN May 31, 2019 12:08
--- NOTE | 2019-05-31 13:57 | PDOCDIS ---
Discharge Instructions CONDITION [id number] Patient Condition: Kujqw2w Stable HOME CARE INSTRUCTIONS: Neyde5Ox Diet Instructions: Vjibs4t Regular ACTIVITY: Mmbzg0Gm Activity Restrictions: Izmei6r Slowly Increase Activity [id number] Bathing Restrictions: [id number] Shower FOLLOW UP/APPOINTMENTS Follow-up Plan Please take your medications as prescribed, see your doctor in the clinic in the next 1 week SANDRA GREEN May 31, 2019 13:57
[2019-05-31] MEDS ORDERED: HYDR-4011 PO (13:59)
[2019-05-31] MEDS ORDERED: CIPR500T4 PO (13:59)
--- NOTE | 2019-05-31 14:02 | CONS ---
Consult Date/Type/Reason Admit Date/Time May 27, 2019 at 12:22 Initial Consult Date 05/27/19 Type of Consultation: Urology Reason for Consultation left upper ureteral stone Requesting Provider: GRACIA COSTA MD Date/Time of Note DATE: 05/31/19 TIME: 13:54 Subjective Patient has pain when he urinates and that is normal because of the JJ stent. Objective Vitals Vital Signs Date Temp Pulse Resp B/P (MAP) Pulse Ox O2 O2 Flow FiO2 Time Delivery Rate 05/31/19 98.7 58 16 101/74 98 Room Air 07:39 (83) Intake and Output 05/30/19 05/30/19 05/31/19 1515:00 23:00 07:00 IntakeIntake Total 700 ml 590 ml 1100 ml OutputOutput Total 550 ml 250 ml BalanceBalance 700 ml 40 ml 850 ml Exam Abdomen is soft, the urine is blood-tinged and that is also normal. Results/Medications Result Diagram: 05/31/19 1212 05/28/19 0433 Results 24 hrs Laboratory Tests Test 05/31/19 12:12 White Blood Count 5.7 Red Blood Count 4.53 L Hemoglobin 15.1 Hematocrit 43.9 Mean Corpuscular Volume 96.9 Mean Corpuscular Hemoglobin 33.3 H Mean Corpuscular Hemoglobin Concent 34.4 Red Cell Distribution Width 13.9 Platelet Count 139 #L Mean Platelet Volume 10.7 H Immature Granulocytes % 0.200 Neutrophils % 54.4 Lymphocytes % 30.1 Monocytes % 12.4 H Eosinophils % 2.4 Basophils % 0.5 Nucleated Red Blood Cells % 0.0 Immature Granulocytes # 0.010 Neutrophils # 3.1 Lymphocytes # 1.7 Monocytes # 0.7 Eosinophils # 0.1 Basophils # 0.0 Nucleated Red Blood Cells # 0.0 Home Meds Discontinued Scripts Famotidine* (Pepcid*) 20 Mg Tablet, 20 MG PO BID for 4 Days, TAB Prov:JOSÉ MIGUEL AU 11/11/18 Docusate Sodium* (Colace*) 100 Mg Capsule, 100 MG PO TID, #30 CAP Prov:JOSÉ MIGUEL AU 11/11/18 Medications Current Medications IV Flush (NS 3 ml) 3 ml PER PROTOCOL IV ; Start 05/27/19 at 14:30 Ondansetron HCl (Zofran Inj) 4 mg Q6H PRN IV NAUSEA/VOMITING; Start 05/27/19 at 14:30 Acetaminophen (Tylenol Tab) 650 mg Q6H PRN PO .PAIN 1-3 OR TEMP; Start 05/27/19 at 14:30 Acetaminophen/ Hydrocodone Bitart ([place] (5/325)) 1 tab Q6H PRN PO .MOD PAIN 4- 6 Last administered on 05/31/19 08:07; Admin Dose 1 TAB; Start 05/27/19 at 14:30 Morphine Sulfate (morphine) 2 mg Q4H PRN IV BREAKTHROUGH PAIN Last administered on 05/29/19 08:07; Admin Dose 2 MG; Start 05/27/19 at 14:30 Tamsulosin HCl (Flomax) 0.4 mg HS PO Last administered on 05/30/19 21:29; Admin Dose 0.4 MG; Start 05/27/19 at 21:00 Ciprofloxacin (Cipro) 500 mg DAILY PO Last administered on 05/31/19 08:06; Admin Dose 500 MG; Start 05/28/19 at 10:00 Polyethylene Glycol (Miralax) 17 gm DAILY PRN PO CONSTIPATION Last administered on 05/29/19 11:43; Admin Dose 17 GM; Start 05/28/19 at 11:30 Docusate Sodium (Colace) 100 mg BID PO Last administered on 05/31/19 08:06; Admin Dose 100 MG; Start 05/29/19 at 12:00 Senna (Senokot) 1 tab BID PO Last administered on 05/31/19 08:06; Admin Dose 1 TAB; Start 05/29/19 at 17:00 Dextrose/Sodium Chloride 1,000 ml @ 100 mls/hr Q10H IV Last administered on 05/31/19 07:10; Admin Dose 100 MLS/HR; Start 05/30/19 at 02:00 Assessment/Plan Hospital Course (Demo Recall) 53-year-old male came into the emergency room with severe left flank pain. He underwent a CT scan of the abdomen and pelvis and that showed a 6 x 7 mm left upper ureteral stone. Patient was admitted and a urological consultation was requested. Patient states have left flank pain about 3 months earlier and I came in to the emergency room here. At that time the pain was not as bad and he was told he has a urinary tract infection. He denies any prior history of kidney stone. Patient less severe pain today but he continues to have pain on and off. KUB done today did not show the stone and that may be because the stone is radiolucent or obscured by the bowel content. His CBC shows a normal white count and straining of his urine did not yield any stone yet. Patient underwent a cystoscopy and insertion of left ureteral JJ stent on 05/30/2019. He does have pain when he urinates and that is expected because of the urine backing through the JJ stent into the kidney. The urine may also be blood-tinged and that is also because of the stent. The patient may be discharged home today on oral pain medication and an antibiotic. He is informed to call his primary care doctor and have him referred him to the urologist contracted with his [facility] which is [facility] ROSA BEARD MD May 31, 2019 14:02
--- NOTE | 2019-05-31 14:03 | DS ---
Date/Time of Note Date/Time of Note DATE: 05/31/19 TIME: 14:01 Discharge Summary Admission/Discharge Info Admit Date/Time May 27, 2019 at 12:22 Discharge Date/Time Discharge Diagnosis #L sided obstructive nephrolithiasis: Again patient status post cystoscopy and JJ stent insertion for treatment of the urethral stone #Tobacco use - Counselled on cessation #Alcohol use - Counselled on national guideline recommended intake. Patient Condition: Stable Procedures Date/Time of Note Date/Time of Note DATE: 05/30/19 TIME: 18:59 Operative Report Procedure Date: May 30, 2019 Preoperative Diagnosis Left upper ureteral stone Postoperative Diagnosis Same, urethral stricture Operation/Procedure Performed Cystoscopy and insertion of left ureteral JJ stent 6 Turkish by 24 cm long Hx of Present Illness 53 yo man with no major PMH who presents with acute onset L flank pain. Symptoms started this morning around 9 am with stabbing left lower quadrant pain radiating to the L flank. It was waxing and waning in quality. Not associated with dysuria or hematuria. He has never had similar pain before. He came to the emergency room. In the ED he was afebrile, tachypneic to 26, BP 175/89, in very considerable pain. CBC and BMP were unremarkable. CT showed left proximal ureter 6x7mm stone with hydroureteronephrosis. Hospital Course Patient was admitted and started on fluids, antibiotics, Flomax. He was seen by urology team. Patient found with left-sided obstructive kidney stone. He underwent cystoscopy and JJ stent insertion as well. Patient tolerated the procedure well. His vital signs and on the labs are stable, he was able to ambulate, tolerated p.o. diet. He will be discharged home today in an improved condition. He will need to follow-up with the urology doctor that is contracted with his insurance in the next few days for suture removal of the JJ stent. We are helping him set up that appointment through case management. See below for full list of discharge medications. Home Meds Active Scripts Hydrocodone/Acetaminophen ([place] 5-325 Tablet) 1 Each Tablet, 1 EACH PO Q6, #15 TAB Prov:SANDRA GREEN S. 05/31/19 Ciprofloxacin Hcl* (Ciprofloxacin Hcl*) 500 Mg Tablet, 500 MG PO DAILY for 5 Days, #5 TAB Prov:SANDRA GREEN S. 05/31/19 Discontinued Scripts Famotidine* (Pepcid*) 20 Mg Tablet, 20 MG PO BID for 4 Days, TAB Prov:JOSÉ MIGUEL AU 11/11/18 Docusate Sodium* (Colace*) 100 Mg Capsule, 100 MG PO TID, #30 CAP Prov:JOSÉ MIGUEL AU 11/11/18 Follow-up Plan Please take your medications as prescribed, see your doctor in the clinic in the next 1 week Primary Care Provider Care Physician No Primary Time spent on discharge: > 30 minutes Pending Labs Laboratory Tests Test 05/31/19 12:12 White Blood Count 5.7 10^3/ul (4.8-10.8) Red Blood Count 4.53 10^6/ul (4.70-6.10) Hemoglobin 15.1 g/dl (14.0-18.0) Hematocrit 43.9 % (42.0-52.0) Mean Corpuscular Volume 96.9 fl (82.0-101.0) Mean Corpuscular Hemoglobin 33.3 pg (29.0-33.0) Mean Corpuscular Hemoglobin Concent 34.4 g/dl (32.0-37.0) Red Cell Distribution Width 13.9 % (11.5-14.5) Platelet Count 139 10^3/UL (140-415) Mean Platelet Volume 10.7 fl (7.4-10.4) Immature Granulocytes % 0.200 % (0.001-0.429) Neutrophils % 54.4 % (39.0-77.0) Lymphocytes % 30.1 % (15.0-51.0) Monocytes % 12.4 % (0.0-11.0) Eosinophils % 2.4 % (0.0-7.0) Basophils % 0.5 % (0.0-2.0) Nucleated Red Blood Cells % 0.0 /100WBC (0.0-0.0) Immature Granulocytes # 0.010 10^3/ul (0.0-0.031) Neutrophils # 3.1 10^3/ul (1.6-7.5) Lymphocytes # 1.7 10^3/ul (0.8-2.9) Monocytes # 0.7 10^3/ul (0.3-0.9) Eosinophils # 0.1 10^3/ul (0.0-0.5) Basophils # 0.0 10^3/ul (0.0-0.1) Nucleated Red Blood Cells # 0.0 10^3/ul (0.0-0.0) Microbiology Date/Time Source Procedure Growth Status 05/30/19 18:41 Cystobladder Urine Culture - Preliminary NO GROWTH Resulted AFTER 24 HOURS SANDRA GREEN May 31, 2019 14:03
[2019-05-31 14:38] VITALS: BP 109/66; PULSE 67; RESP 18
== END 2019-05-31 16:50 | disposition home or self-care (01) | DRG 661 ==
LOC: E/R 09:57 → SUATTDRO 12:17 → MS1 12:22
PROVIDERS: ADMIT Internal Medicine; ATTEND Hospitalist
PROC: 0T778DZ Dilation of Left Ureter with Intraluminal Device, Via Natural or Artificial Opening Endoscopic (ICD-10-PCS; principal; 2019-05-30 18:00)
DX: N20.1 Calculus of ureter (principal); Z72.0 Tobacco use; Z72.89 Other problems related to lifestyle; F17.210 Nicotine dependence, cigarettes, uncomplicated
CPT/HCPCS: 36415; 71045; 74018; 74176; 74420; 80053; 81001; 82150; 83036; 83690; 83735; 84100; 84484; 85025; 85610; 85730; 87086; 93005; 96361; 96374; 96375; C2617; J0461; J0690; J0744; J1170; J1885; J2270; J2405; J7030; J7042; Q9967

== ENCOUNTER 2019-07-08 13:16 | Emergency (ER) | payer OTHER ==
[~2019-07-08] VITALS: Ht 170.2 cm; Wt 84.6 kg
[~2019-07-08 13:16] MED LIST changes: +ANTIBIOTIC PO; +CEPH-443 PO; +CIPR500T4 PO; -DOCU-144 PO; -FAMO-96 PO; +HYDR-3980 PO; +HYDR-4011 PO; +IBUP800T48 PO
[2019-07-08 13:20] VITALS: Ht 170.2 cm; Wt 84.6 kg
[2019-07-08] MEDS ORDERED: SOD CHLORIDE 0.9% 1,000 ML IV STA (13:37)
[2019-07-08] MEDS ORDERED: HYDROmorphONE 1 MG/ML SYG IV STA ×2 (13:37→16:09)
[2019-07-08] MEDS ORDERED: ONDANSETRON 4 MG INJ IV STA (13:37)
[2019-07-08] MEDS ORDERED: CEFTRIAXONE 1 GM/50 ML (PMX) 50 ML IVPB ONE (14:30)
[2019-07-08] MEDS ORDERED: KETOROLAC 15 MG INJ IV STA (17:23)
[2019-07-08 19:23] VITALS: BP 111/63; PULSE 64; RESP 14
== END 2019-07-08 19:25 | disposition left against medical advice (07) ==
LOC: E/R 13:16
DX: N20.1 Calculus of ureter (principal); F17.210 Nicotine dependence, cigarettes, uncomplicated
CPT/HCPCS: 36415; 74176; 80053; 81001; 83690; 85025; 87086; 96374; 96375; 96376; J0696; J1170; J1885; J2405; J7030; Z7502